=== PATIENT | male | born 1965 | race Caucasian/White ===

== ENCOUNTER 2019-10-12 08:33 | Inpatient (IN) ==
--- OUTSIDE RECORDS SUMMARY | 2019-10-12 08:37 | External Medical Summary | Continuity of Care Document ---
:1965 Author Name Sarah Hernandez, Provider Address Unavailable Unavailable , Care Team Providers Name Role Phone Karli Guerrero Unavailable 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 Start: 23-Aug-2014 Refills: 0 Omeprazole 40 MG Oral Capsule Delayed Re lease; TAKE 1 CAPSULE Daily 1/2 hour prior to breakfast KENNEDY Crespo Start: 13-Feb-2016 Quantity: 30 Refills: 4 Atorvastatin Calcium 10 MG Oral Tablet; TAKE 1 TABLET DAILY. ALBERTO Brown Start: 27-Jan-2015 Quantity: 30 Refills: 11 One Touch Delica Lancets MISC; Test 4 times daily Refills: 0 OneTouch Ultra Blue In Vitro Strip; TEST 4 TIMES DAILY. for insulin dependent Type 2 Diabetes Mellitus (E11.49) Refills: 3 Lantus SoloStar 100 UNIT/ML Subcutaneous Solution Pen-injector; INJECT 30 UNITS SUBCUTANEOUSLY AT BEDTIME ALBERTO Cardenas Start: 02-Aug-2015 Quantity: 1 3 ML Pen (5 Pens) Refills: 0 Glimepiride 4 MG Oral Tablet; Pt states taking 1 4mg tablet daily) Refills: 0 Levothyroxine Sodium 50 MCG Oral Tablet; TAKE 1 TABLET DAILY DIRECTED. ALBERTO Brown Start: 27-Jan-2015 Quantity: 30 Refills: 5 Procedures History of Hernia Repair Status: Complet ed Immunizations Immunizations not documented Family History Mother Family history of hypothyroidism (V18.19) (Z83.49) Status: A ctive Family history of osteoporosis (V17.81) (Z82.62) Status: Act pauline Father Family history of restless leg syndrome (V17.2) (Z82.0) Stat us: Active Family history of diabetes mellitus (V18.0) (Z83.3) Status: Active Family history of coronary artery disease (V17.3) (Z82.49) S tatus: Active Family history of congestive heart failure (V17.49) (Z82.49) Status: Active Social History - Smoking Status Smokes tobacco daily Plan of Treatment Planned Observations Planned Goals not documented Results No Known Results Results not documented
[2019-10-12 09:07] LABS: Basophils # (auto) 0.01 K/uL (0-0.2); Basophils % (auto) 0.2 %; Eosinophils # (auto) 0.08 K/uL (0-0.5); Eosinophils % (auto) 1.8 %; Hematocrit (blood only) 41.1 % (42-52); Hemoglobin 14.7 g/dL (14.0-18.0); Immature Granulocytes # (auto) 0.05 K/uL (0.00-0.02); Immature Granulocytes % (auto) 1.1 %; Lymphocytes % (auto) 24.1 %; Mean Corpuscular Hgb Conc 35.8 g/dL (32-36); Mean Corpuscular Volume 86.7 fL (80-100); Mean Platelet Volume 9.7 fL (7.4-10.4); Monocytes # (auto) 0.32 K/uL (0.11-0.59); Neutrophils # (auto) 3.01 K/uL (1.4-6.5); Neutrophils % (auto) 65.8 %; Platelet Count 130 K/uL (130-400); RDW Coefficient of Variation 14.4 % (11.5-14.5); RDW Standard Deviation 45.6 fL (36.4-46.3); Red Blood Count 4.74 M/uL (4.7-6.1); White Blood Count 4.57 K/uL (4.8-10.8)
[2019-10-12 09:14] LABS: INR 1.1 (0.9-1.1); Partial Thromboplastin Ratio 0.9; Partial Thromboplastin Time 24.8 Seconds (21.0-31.0); Prothrombin Time 11.3 Seconds (9.0-12.0)
[2019-10-12] MEDS ORDERED: NITROGLYCERIN 2% OINTMENT 30GM TUBE EXT STA (09:26)
--- NOTE | 2019-10-12 09:26 | Emergency Department Note ---
History of Present Illness General Chief Complaint: Chest Pain Time Seen by Provider: 10/12/19 08:48 Source: patient Mode of arrival: EMS Limitations: no limitations History of Present Illness Provider Complaint: chest pain Maximum Pain Intensity: 2 The patient presents to the ED with a chief complaint of chest pain off and on for about a week. He states that it seemed to be more exertional in nature. This morning he awoke with chest pain and diaphoresis as well as nausea and vomiting as well as burping/and indigestion. He states that it started around 530 this morning. EMS gave him aspirin and 2 sublingual nitroglycerin that seemed to help. The patient now states that his pain is mild. Denies any fevers or recent illness. He is an insulin-dependent diabetic. He also has a h istory of hypertension. Symptoms are moderate to severe this morning. For this reason he called the ambulance. Home Medications Home Medications Medication Instructions Recorded Confirmed Type atenolol 25 mg PO DAILY 10/12/19 10/12/19 History atorvastatin 10 mg PO DAILY 10/12/19 10/12/19 History gabapentin 300 mg PO HS 10/12/19 10/12/19 History insulin glargine [Lantus Solostar 30 unit SUBCUT QPM 10/12/19 10/12/19 History U-100 Insulin] lisinopril 20 mg PO DAILY 10/12/19 10/12/19 History nystatin 1 applic TOPICAL BID 10/12/19 10/12/19 History omeprazole 40 mg PO DAILY 10/12/19 10/12/19 History Allergies Allergy/AdvReac Type Severity Reaction Status Date / Time No Known Allergies Unverified 04/28/10 09:35 Past Med/Surg History Social History Smoking Status: Current every day smoker Tobacco Type: Cigarettes Feels Safe at Home: Yes Review of Systems A total of 10 systems reviewed and were otherwise negative Physical Exam Vital Signs Vital Signs - 24 hr 10/12/19 08:49 10/12/19 08:54 10/12/19 08:55 Temperature 36.5 C Temperature Source Oral Pulse Rate 78 Pulse Rate [Apical] Pulse Rhythm Regular Pulse Rhythm [Apical] Pulse Strength Normal Pulse Strength [Apical] Respiratory Rate 18 Respiratory Effort / Characteristics Non-Labored Spontaneous Respiratory Depth Normal Respiratory Pattern Regular Blood Pressure 127/80 Blood Pressure [Left Arm] Blood Pressure Mean 95 Blood Pressure Mean [Left Arm] Blood Pressure Position Lying Blood Pressure Position [Left Arm] Pulse Oximetry 98 98 97 Oxygen Delivery Method Room Air Room Air Room Air Sepsis Recent Fever Within 48 Hours No Sepsis New/Unexplained Change in Mental Status No Sepsis Action Taken by Nursing No Action Required 10/12/19 09:33 10/12/19 10:52 Temperature Temperature Source Pulse Rate Pulse Rate [Apical] 61 67 Pulse Rhythm Pulse Rhythm [Apical] Regular Regular Pulse Strength Pulse Strength [Apical] Normal Normal Respiratory Rate 18 16 Respiratory Effort / Characteristics Non-Labored Spontaneous Non-Labored Spontaneous Respiratory Depth Normal Normal Respiratory Pattern Regular Regular Blood Pressure Blood Pressure [Left Arm] 130/88 123/79 Blood Pressure Mean Blood Pressure Mean [Left Arm] 102 93 Blood Pressure Position Blood Pressure Position [Left Arm] Lying Lying Pulse Oximetry 97 99 Oxygen Delivery Method Room Air Room Air Sepsis Recent Fever Within 48 Hours Sepsis New/Unexplained Change in Mental Status Sepsis Action Taken by Nursing CONSTITUTIONAL/VITAL SIGNS: Reviewed / noted above. GENERAL: Non-toxic in appearance. INTEGUMENTARY: Warm, dry, and [place]. HEAD: Normocephalic. EYES: without scleral icterus or trauma. ENT/OROPHARYNX: clear and moist. LYMPHADENOPATHY/NECK: Is supple without lymphadenopathy or meningismus. RESPIRATORY: Lungs clear and equal. CARDIOVASCULAR: Regular rate and rhythm. GI/ABDOMEN: Soft and nontender. No organomegaly or pulsatile mass. No rebound or guarding. Normal bowel sounds. EXTREMITIES: Warm and well perfused. BACK: No CVA tenderness. NEUROLOGICAL: Intact without focal deficits. PSYCHIATRIC: normal affect. MUSCULOSKELETAL: Normally developed with good muscle tone. TRIAGE NURSING DOCUMENTATION REVIEWED. Course Administered Medications Discontinued Medications Nitroglycerin (Nitro-Bid 2%) 1 inch EXT NOW STA Stop: 10/12/19 09:27 Last Admin: 10/12/19 09:40 Dose: 1 inch Documented by: [id number] Medical Decision Making Differential Diagnosis The differential that was considered includes acute myocardial infarction, acute coronary syndrome, myocarditis, pericarditis, pericardial effusions /tamponade, esophageal perforation, thoracic aortic dissection, pulmonary embolism, pneumonia, pneumothorax, pancreatitis, shingles, acute cholecystitis, perforated abdominal viscus. Medical Records Attestation: I reviewed the patient's medical records. Home Medications Current Medication List: was personally reviewed by me Laboratory Data Attestation: I reviewed the patient's lab results. Result diagrams: 10/12/19 08:49 10/12/19 08:49 Labs: Lab Results 10/12/19 10/12/19 10/12/19 Range/Units 08:49 08:49 08:49 WBC 4.57 L (4.8-10.8) K/uL RBC 4.74 (4.7-6.1) M/uL Hgb 14.7 (14.0-18.0) g/dL Hct 41.1 L (42-52) % MCV 86.7 (80-100) fL MCH 31.0 (25-34) pg MCHC 35.8 (32-36) g/dL RDW Std Deviation 45.6 (36.4-46.3) fL RDW Coeff of Isi 14.4 (11.5-14.5) % Plt Count 130 (130-400) K/uL MPV 9.7 (7.4-10.4) fL Immature Gran % (Auto) 1.1 % Neut % (Auto) 65.8 % Lymph % (Auto) 24.1 % Phillips % (Auto) 7.0 % Eos % (Auto) 1.8 % Baso % (Auto) 0.2 % Neut # (Auto) 3.01 (1.4-6.5) K/uL Lymph # (Auto) 1.10 L (1.2-3.4) K/uL Phillips # (Auto) 0.32 (0.11-0.59) K/uL Eos # (Auto) 0.08 (0-0.5) K/uL Baso # (Auto) 0.01 (0-0.2) K/uL Immature Gran # (Auto) 0.05 H (0.00-0.02) K/uL PT 11.3 (9.0-12.0) Seconds INR 1.1 (0.9-1.1) APTT 24.8 (21.0-31.0) Seconds PTT Ratio 0.9 Sodium 134 L (136-145) mmol/L Potassium 4.2 (3.5-5.1) mmol/L Chloride 99 (98-107) mmol/L Carbon Dioxide 25 (21-32) mmol/L Anion Gap 10.0 (3-11) BUN 14 (7-18) mg/dl Creatinine 0.94 (0.6-1.4) mg/dl Est Cr Clr Drug Dosing 124.6 ml/min Est GFR ( Amer) 107.6 Est GFR (Non-Af Amer) 92.8 BUN/Creatinine Ratio 15.1 (10-20) Glucose 258 H (70-99) mg/dl Calcium 7.7 L (8.5-10.1) mg/dl Total Bilirubin 0.6 (0.2-1) mg/dl AST 71 H (15-37) U/L ALT 121 H (12-78) U/L Alkaline Phosphatase 85 (45-117) U/L Total Creatine Kinase 109 (39-308) U/L Troponin I 0.017 (0-0.045) ng/ml Total Protein 6.7 (6.4-8.2) gm/dl Albumin 3.2 L (3.4-5.0) gm/dl Globulin 3.5 (2.5-4.0) gm/dl Albumin/Globulin Ratio 0.9 (0.9-2) Lipase 353 (73-393) U/L ECG Data Attestation: I personally reviewed and interpreted this ECG as follows: Indication: chest pain Rate (beats per minute): 72 Rhythm: normal sinus Findings: + T-wave inversion (Lateral) Comparison ECG Date: no prior available MDM Narrative The patient presents with intermittent chest pain that has been exertional in nature. This morning it was severe and associated with nausea vomiting and diaphoresis. This morning symptoms started at 5:30 AM. He states that it was worse with exertion. EMS provided aspirin and sublingual nitro x2 and this helped his pain. His initial twelve-lead EKG shows a normal sinus rhythm at a rate of 72 with T wave inversions laterally. His CBC was unremarkable. Chemistry panel and troponin were unremarkable as well. The chest x-ray was negative for acute disease. Glucose is 255. The lipase was negative. The patient was told the results. He was given Nitropaste. On reassessment, he states that he is feeling much better. He will be seen by the hospitalist for further inpatient evaluation and care. His symptoms are concerning for unstable angina. Impression & Plan Angina pectoris, unstable Discharge Plan Visit Data Chief Complaint: Chest Pain ED Provider: Marshall Santoro Discharge Problem: Angina pectoris, unstable Patient Disposition: Being Evaluated by Hospitalist Forms Stand Alone Forms: My [facility] Prescriptions Prescriptions: No Action atorvastatin 10 mg tablet 10 mg PO DAILY RF: 0 lisinopril 20 mg tablet 20 mg PO DAILY RF: 0 atenolol 25 mg tablet 25 mg PO DAILY RF: 0 omeprazole 40 mg capsule,delayed release(DR/EC) 40 mg PO DAILY RF: 0 nystatin 100,000 unit/gram cream 1 applic TOPICAL BID RF: 0 gabapentin 300 mg capsule 300 mg PO HS RF: 0 Lantus Solostar U-100 Insulin 100 unit/mL (3 mL) insulin pen 30 unit SUBCUT QPM RF: 0 Referrals Referrals: PCP,NO [Primary Care Provider] -
[2019-10-12 09:30] LABS: Albumin Globulin Ratio 0.9 (0.9-2); Albumin Level 3.2 gm/dl (3.4-5.0); BUN Creatinine Ratio 15.1 (10-20); Bilirubin,Total 0.6 mg/dl (0.2-1); Calcium 7.7 mg/dl (8.5-10.1); Creatinine Clr Calc Pharmacy 124.6 ml/min; Est GFR (African American) 107.6; Est GFR (Non-African American) 92.8; Globulin 3.5 gm/dl (2.5-4.0); Total Protein 6.7 gm/dl (6.4-8.2); Troponin I 0.017 ng/ml (0-0.045)
[2019-10-12 09:45] LABS: Potassium 4.2 mmol/L (3.5-5.1)
--- NOTE | 2019-10-12 09:47 | XRay Report ---
XR chest 1V portable HISTORY: 54 years-old Male Chest Pain acute atypical chest pain COMPARISON: Chest radiograph 04/28/2010 TECHNIQUE: Portable AP view of the chest FINDINGS: Cardiomediastinal and hilar silhouettes are unchanged. Mild right hemidiaphragmatic elevation. There is no pneumothorax, pleural effusion, airspace consolidation or overt pulmonary edema. IMPRESSION: No acute process. ACT 112: Negative or not required by law. The above report was generated using voice recognition software. It may contain grammatical, syntax o r spelling errors. Electronically signed by: Filemon Abdi M.D. 10/12/2019 9:45 AM
[2019-10-12] MEDS ORDERED: GLUCAGON FOR INJ 1 MG VIAL SQ PRN (11:06)
[2019-10-12] MEDS ORDERED: GLUCOSE 40% GEL 15 GM TUBE PO PRN (11:06)
[2019-10-12] MEDS ORDERED: CARBOHYDRATES FOR HYPOGLYCEMIA PO PRN (11:06)
[2019-10-12] MEDS ORDERED: DEXTROSE 50% 50 ML SYRINGE IV PRN (11:06)
[2019-10-12] MEDS ORDERED: GLUCOSE 10 TABS/TUBE PO PRN (11:06)
--- NOTE | 2019-10-12 11:19 | History & Physical Report ---
Date of Service October 12, 2019 Assessment & Plan (1) Atypical chest pain: History more consistent with GI cause given relationship with food and chronic nature with known gastritis. However patient has multiple significant risk factors for coronary disease with exertional component to his pain. Given severity current event event is doubtfully cardiac unless he has a troponin elevation. EKG with TWI in lateral leads. Currently chest pain free with 1 inch nitro patch ASA 324mg PO given en route to hospital Trend troponins HbA1C and lipid panel in AM IV famotidine 20mg given for possible GERD, likely esophageal spasm/motility issue causing his pain given improvement with nitroglycerin Given concern he had similar symptoms with prior bowel obstruction will also give full liquid diet which can be advanced if he doesn't have recurrent nausea/vomiting. (2) Type 2 diabetes mellitus: HbA1C with AM labs Basal bolus insulin coverage Reports no longer taking (3) GERD (gastroesophageal reflux disease): IV famotidine 20mg now. Switch omeprazole for pantoprazole as per hospital formulary. (4) Hypertriglyceridemia: Lipid panel with AM labs Continue atorvastatin (5) Hypertension: Continue lisinopril and atenolol (6) Bilateral carpal tunnel syndrome: Recommend outpatient follow up with his PCP Admission and Anticipated Discharge Date Admission Date: 10/12/2019 History of Present Illness Chief Complaint: Chest pain Primary Care Provider: Dr Brendan Ly Jenaro is a 54 year old male who presents to the ER with severe chest pain that started at 5:30am today. The pain woke him up and gradually increased throughout the morning. Most severe 10/10 after drinking ice tea. Worse on exertion. Ice tea started his vomiting and diaphoresis and just wouldn't go away after this so he called for EMS. Aspirin and nitro spray given by EMS on route. No radiation. Substernal. Since being given the nitro patch in the ER he has been chest pain free. No prior history of CAD or CVA. He has a long standing history of similar pains over the last year. These appear to have been getting worse the last few weeks but to much less severity than today. Occurring at rest. On one occasion after eating a burger Rolando whopper. Another time he woke up in the middle of the night with his heart going fasting and pounding (he put this down to newly taking gabapentin). He reports being stung by a bee yesterday and wondered whether this precipitated his pain today. He has a longstanding history of GERD requiring prior EGDs although he cannot reliably remember the results of these but they were more than a decade ago. He has diabetes and reports not having his insulin for the last 3 months, he did take his usual 30 units last night. He also has LEANNE but reports having difficulty getting the correct supplies so also hasn't been using this. Current smoker - 1.5 packs/day. Allergies Allergy/AdvReac Type Severity Reaction Status Date / Time No Known Allergies Unverified 04/28/10 09:35 Home Medications Home Medications Medication Instructions Recorded Confirmed Type atenolol 25 mg PO DAILY 10/12/19 10/12/19 History atorvastatin 10 mg PO DAILY 10/12/19 10/12/19 History gabapentin 300 mg PO HS 10/12/19 10/12/19 History insulin glargine [Lantus Solostar 30 unit SUBCUT QPM 10/12/19 10/12/19 History U-100 Insulin] lisinopril 20 mg PO DAILY 10/12/19 10/12/19 History nystatin 1 applic TOPICAL BID 10/12/19 10/12/19 History omeprazole 40 mg PO DAILY 10/12/19 10/12/19 History Past Med/Surg History Medical History (Updated 10/13/19 @ 08:19 by Ricardo Will MD) Bilateral carpal tunnel syndrome GERD (gastroesophageal reflux disease) Hypertension Hypertriglyceridemia Type 2 diabetes mellitus Social History Smoking Status: Current every day smoker Tobacco Type: Cigarettes Cigarettes Per Day: 1.5 pack per day; Do You Dip or Chew Tobacco: No; Hx Alcohol Use: Yes Alcohol type: beer Hx Substance Use: Yes Last Used Substance: Days (ago) Last Used Substance Other:: smoked marijuana yesterday Preferred Language: Citizen Of [place] Communication Ability: Effective Electrotyper Apprentice Required: No Beliefs That Will Affect Care: None Current Living Situation: Family Other Information That Helps Us Care for You: No Feels Safe at Home: Yes Safety Concerns: Feels Safe At This Time Review of Systems Review of Systems: All systems reviewed & are unremarkable except as noted in HPI & below Physical Exam Constitutional: well developed and well nourished; no acute distress Eyes: + anicteric sclerae; normal pupil size ENMT: external ear and nose normal, oropharynx normal Neck: trachea midline, no thyromegaly Respiratory: normal respiratory effort, lungs clear to auscultation Cardiovascular: RRR, no murmur, no edema Gastrointestinal (Abdomen): normal bowel sounds, soft, nontender, no hepatosplenomegaly Musculoskeletal: no cyanosis or clubbing, extremities motor strength 5/5 Skin: no rashes, warm and dry Neurologic: moves all extremities and awake; not confused Psychiatric: A+Ox3, euthymic affect Genitourinary: no CVA tenderness Lymphatic: no cervical or axillary lymphadenopathy Results & Data Results & Data ([facility]) Vital Signs (Past 12 Hours) Vital Signs Temp Pulse Pulse Resp BP BP Pulse Ox 10/12/19 10:52 67 16 123/79 99 10/12/19 09:33 61 18 130/88 97 10/12/19 08:55 97 10/12/19 08:54 98 10/12/19 08:49 36.5 C 78 18 127/80 98 Diagnostic Findings XR chest 1V portable IMPRESSION: No acute process. ECG Indication: chest pain Rate (beats per minute): 72 Rhythm: normal sinus Findings: + T-wave inversion (Lateral) Comparison ECG Date: from (2010) Change: the following changes noted (TWI replaced flattening in lateral leads) Code Status & VTE Plan Code Status Full VTE Prophylaxis Plan VTE Prophylaxis will be ordered: No PG Care Time/CCT Total # of Minutes Spent Total Time Spent with Patient: Total time spent is greater than 50% in coordination of care (as documented) at patient's floor/unit and/or counseling patient: Coding Level of Care Code 06874 Initial Inpt Care Lvl 3 Diagnoses Atypical chest pain R07.89 Type 2 diabetes mellitus E11.9 GERD (gastroesophageal reflux disease) K21.9 Hypertriglyceridemia E78.1 Hypertension I10 Bilateral carpal tunnel syndrome G56.03
[2019-10-12] MEDS ORDERED: FAMOTIDINE 20MG/5ML IV PUSH IV STA (11:26)
--- NOTE | 2019-10-12 11:40 | Electrocardiogram Report ---
Test Reason : Blood Pressure : / mmHG Vent. Rate : 072 BPM Atrial Rate : 072 BPM P-R Int : 138 ms QRS Dur : 096 ms QT Int : 384 ms P-R-T Axes : 064 -07 097 degrees QTc Int : 420 ms Normal sinus rhythm T wave abnormality, consider lateral ischemia Abnormal ECG When compared with ECG of 28-APR-2010 09:29, Inverted T waves have replaced nonspecific T wave abnormality in Lateral leads Confirmed by Isra Valencia ([id number]) on 10/12/2019 11:39:57 AM Referred By: REFERRED SELF Confirmed By:Kingsley Valencia
[2019-10-12] MEDS: INSULIN ASPART 100 UNITS/ML 3 ML PEN SC SCH ×3 (13:39→20:24)
[2019-10-12] MEDS: NITROGLYCERIN 2% OINTMENT 30GM TUBE EXT SCH ×2 (13:43→17:34)
[2019-10-12 16:13] LABS: Albumin Level 3.2 gm/dl (3.4-5.0); BUN Creatinine Ratio 15.3 (10-20); Bilirubin,Total 0.5 mg/dl (0.2-1); Creatinine Clr Calc Pharmacy 139.3 ml/min; Est GFR (African American) 116.7; Est GFR (Non-African American) 100.7; Globulin 3.3 gm/dl (2.5-4.0); Potassium 4.1 mmol/L (3.5-5.1); Total Protein 6.5 gm/dl (6.4-8.2); Troponin I 0.332 ng/ml (0-0.045)
[2019-10-12] MEDS ORDERED: ONDANSETRON INJ 2 MG/ML 2 ML VIAL IV PRN (16:18)
[2019-10-12] MEDS ORDERED: NITROGLYCERIN SL 0.4 MG/TAB TAB SL PRN (16:18)
[2019-10-12] MEDS ORDERED: Heparin IV Low Dose WITH Bolus IV SCH (16:30)
[2019-10-12] MEDS ORDERED: HEPARIN IV BOLUS 4,000 UNITS in SYRINGE 0 ML IV ONE (17:00)
[2019-10-12] MEDS: INSULIN GLARGINE SOLOSTAR 100 UNITS/ML 3 ML PEN SC SCH (17:19)
[2019-10-12] MEDS: HEPARIN SODIUM/DEXTROSE 25,000 UNITS/500 ML BAG IV SCH (17:28)
[2019-10-12 17:44] LABS: INR 1.1 (0.9-1.1); Partial Thromboplastin Ratio 0.8; Partial Thromboplastin Time 23.6 Seconds (21.0-31.0); Prothrombin Time 11.2 Seconds (9.0-12.0)
[2019-10-12] MEDS: ATORVASTATIN 40 MG TAB PO SCH (20:22)
[2019-10-12] MEDS: METOPROLOL TARTRATE 25 MG TAB PO SCH (20:23)
[2019-10-12 23:48] LABS: Partial Thromboplastin Ratio 1.1; Partial Thromboplastin Time 30.1 Seconds (21.0-31.0)
[2019-10-13] MEDS ORDERED: INSULIN ASPART 100 UNITS/ML 3 ML PEN SC ONE
[2019-10-13] MEDS: NITROGLYCERIN 2% OINTMENT 30GM TUBE EXT SCH ×3 (00:16→13:30)
[2019-10-13] MEDS: MoRPHine SULFATE 2 MG/ML CARP IV STA ×2 (01:59→02:06)
[2019-10-13] MEDS ORDERED: Nursing to Pharmacy Communication SCH (03:00)
[2019-10-13] MEDS ORDERED: HEPARIN IV BOLUS 4,500 UNITS in SYRINGE 0 ML IV ONE (03:30)
[2019-10-13 05:50] LABS: Basophils # (auto) 0.01 K/uL (0-0.2); Basophils % (auto) 0.2 %; Eosinophils # (auto) 0.07 K/uL (0-0.5); Eosinophils % (auto) 1.5 %; Hematocrit (blood only) 39.2 % (42-52); Hemoglobin 13.9 g/dL (14.0-18.0); Immature Granulocytes # (auto) 0.03 K/uL (0.00-0.02); Immature Granulocytes % (auto) 0.6 %; Lymphocytes # (auto) 1.73 K/uL (1.2-3.4); Mean Corpuscular Hemoglobin 31.2 pg (25-34); Mean Corpuscular Hgb Conc 35.5 g/dL (32-36); Mean Corpuscular Volume 87.9 fL (80-100); Mean Platelet Volume 9.9 fL (7.4-10.4); Monocytes # (auto) 0.24 K/uL (0.11-0.59); Monocytes % (auto) 5.1 %; Neutrophils # (auto) 2.59 K/uL (1.4-6.5); Neutrophils % (auto) 55.6 %; Platelet Count 108 K/uL (130-400); RDW Coefficient of Variation 14.6 % (11.5-14.5); RDW Standard Deviation 46.9 fL (36.4-46.3); Red Blood Count 4.46 M/uL (4.7-6.1); White Blood Count 4.67 K/uL (4.8-10.8)
[2019-10-13 06:40] LABS: Albumin Globulin Ratio 0.9 (0.9-2); BUN Creatinine Ratio 14.9 (10-20); Bilirubin,Total 0.5 mg/dl (0.2-1); Creatinine Clr Calc Pharmacy 144.2 ml/min; Est GFR (African American) 118.4; Est GFR (Non-African American) 102.2; Globulin 3.4 gm/dl (2.5-4.0); Potassium 3.6 mmol/L (3.5-5.1); Total Protein 6.4 gm/dl (6.4-8.2); Troponin I 0.251 ng/ml (0-0.045)
[2019-10-13] MEDS: lisinopriL 20 MG TAB PO SCH (07:39)
[2019-10-13] MEDS: METOPROLOL TARTRATE 25 MG TAB PO SCH ×2 (07:40→20:03)
[2019-10-13] MEDS: INSULIN ASPART 100 UNITS/ML 3 ML PEN SC SCH ×4 (07:42→20:23)
[2019-10-13 07:52] LABS: Estimated Average Glucose 275 mg/dl; Hemoglobin A1C 11.2 % (4.5-5.6)
[2019-10-13] MEDS ORDERED: ATORVASTATIN 10 MG TAB PO SCH (09:00)
[2019-10-13] MEDS ORDERED: ATENOLOL 25 MG TABLET PO SCH (09:00)
[2019-10-13] MEDS ORDERED: ASPIRIN 81 MG ECTAB PO SCH (09:00)
--- NOTE | 2019-10-13 09:04 | XCELERA ---
[id number]
--- NOTE | 2019-10-13 09:39 | Pre Anesthesia Assessment ---
Date of Service October 13, 2019 Pre Sedation Assessment Vital Signs Temp Pulse Pulse Resp BP BP Pulse Ox 10/13/19 07:13 36.6 C 64 18 133/84 94 10/13/19 04:02 36.6 C 68 20 137/86 98 10/13/19 03:20 61 10 L 95 10/13/19 01:49 61 10/12/19 23:20 64 18 96 10/12/19 23:10 36.8 C 61 18 113/72 96 10/12/19 20:02 36.6 C 74 18 126/72 96 10/12/19 15:32 36.8 C 94 H 18 128/72 94 10/12/19 15:13 36.7 C 95 H 18 117/71 96 10/12/19 14:53 69 10/12/19 13:24 70 10/12/19 13:05 37 C 90 18 139/71 100 10/12/19 12:10 68 18 120/84 97 10/12/19 10:52 67 16 123/79 99 Cardiovascular + regular rate Respiratory + respiratory effort normal Pre-Sedation Airway Assessment Smoking Status: Current every day smoker Hx Sleep Apnea: Yes Hx Difficult Intubation: No Short, Thick Neck: No Thyromental Distance: > or= 3.5 Finger Breadths Oral Cavity: + WNL Mallampati Class: III ASA: ASA3 Procedure Planning Contraindications for Sedation: none Current Medications Reviewed: Yes Notes The planned sedation has been discussed with the patient. Informed Consent was obtained. I have identified the patient, determined the appropriateness of sedation and have assessed the patient immediately prior to the procedure. All medicine(s) and interventions are by my order.
[2019-10-13] MEDS: INSULIN GLARGINE SOLOSTAR 100 UNITS/ML 3 ML PEN SC SCH ×2 (09:41→20:23)
[2019-10-13 10:01] LABS: Partial Thromboplastin Ratio 1.3; Partial Thromboplastin Time 35.6 Seconds (21.0-31.0)
--- NOTE | 2019-10-13 10:07 | Cardiology Consultation ---
Date of Consultation October 13, 2019 Assessment & Plan (1) Chest pain: patient's symptoms of chest discomfort have typical and atypical features. He had a very prolonged episode of what he described as severe discomfort with only mild elevation in his cardiac biomarkers. However, he has begun having similar episodes over the past month, some which seem to be worsened by exertion. Objective finding suggestive of ischemia would be his cardiac biomarker elevation and abnormal EKG. Echocardiogram was reassuring that he has preserved LV systolic function without evidence of old infarct. My main concern is his risk factors for coronary disease. Appears have poorly controlled diabetes and an abnormal lipid profile. He is not appear to have a family history of premature coronary disease. We discussed options for additional evaluation. I think based on his risk factors and some typical features of his symptoms would be reasonable to perform coronary angiography. Discussed the risks benefits and alternatives and he is willing to proceed. He will clearly need more aggressive risk factor modification to include better glycemic control, additional anti-lipid agents and a return to use of CPAP more regularly History of Present Illness Reason for Consultation: Chest pain Requesting Physician: Nicolette Attending Physician: John Julien DO History of Present Illness patient is a 54-year-old gentleman without a known history of cardiac disease has been experiencing symptoms of chest discomfort over the past month. Yesterday morning the patient awoke in shortly after getting out of bed he began to experience severe substernal discomfort. Describes some radiation to the back a sense of numbness in both arms. His symptoms were associated with some diaphoresis and later nausea and retching. His symptoms were persistent for over an hour. Due to the persistent and severe nature of his symptoms he contacted EMS and was transported not any [facility]. Patient's symptoms appear to have resolved significantly in the emergency room, but apparently he did have some additional mild symptoms later in the day. He reports 3 other episodes that were similar. One of these occurred after eating and being active. He the to appear to occur spontaneously. These episodes were less severe and lasted under an hour. All these episodes have occurred over the past month. Additional symptoms recently include a sense of generalized weakness and exercise intolerance. He does claim to be an active individual who is accustomed mowing grass and performing significant labor. He has not had symptoms chest pressure or limiting dyspnea associated with these activities recently. He has a rare sense of palpitation. He has dizziness when bending over and standing up rapidly. He has never suffered syncope. He does not have orthopnea or paroxysmal nocturnal dyspnea. He does have a history of obstructive sleep apnea and has not been compliant with his CPAP. Allergies Allergy/AdvReac Type Severity Reaction Status Date / Time No Known Allergies Unverified 04/28/10 09:35 Home Medications Home Medications Medication Instructions Recorded Confirmed Type atenolol 25 mg PO DAILY 10/12/19 10/12/19 History atorvastatin 10 mg PO DAILY 10/12/19 10/12/19 History gabapentin 300 mg PO HS 10/12/19 10/12/19 History insulin glargine [Lantus Solostar 30 unit SUBCUT QPM 10/12/19 10/12/19 History U-100 Insulin] lisinopril 20 mg PO DAILY 10/12/19 10/12/19 History nystatin 1 applic TOPICAL BID 10/12/19 10/12/19 History omeprazole 40 mg PO DAILY 10/12/19 10/12/19 History Patient History Medical History Bilateral carpal tunnel syndrome GERD (gastroesophageal reflux disease) Hypertension Hypertriglyceridemia Type 2 diabetes mellitus Social History Smoking Status: Current every day smoker Tobacco Type: Cigarettes Cigarettes Per Day: 1.5 pack per day; Do You Dip or Chew Tobacco: No; Hx Alcohol Use: Yes Alcohol type: beer Hx Substance Use: No Preferred Language: Yoruba Communication Ability: Effective Route Returner Required: No Beliefs That Will Affect Care: None Current Living Situation: Family Other Information That Helps Us Care for You: No Feels Safe at Home: Yes Safety Concerns: Feels Safe At This Time Review of Systems Review of Systems: All systems reviewed & are unremarkable except as noted in HPI & below Physical Exam Physical Exam: The patient is alert and oriented. Mood and affect appeared normal. He answered all questions appropriately. HEENT: Pupils are equal and reactive to light and accommodation. Extraocular movements are intact. The sclerae are anicteric. Neuro: Cranial nerves intact Neck: Patient's neck is supple. He has palpable carotid pulses bilaterally without bruits on auscultation. There is no evidence of jugular venous distention. The thyroid is not enlarged. Lungs: Clear to auscultation bilaterally. He has good air movement without use of accessory muscles. No rales wheezes or rhonchi. Cardiac: Heart demonstrates a regular rate and rhythm. Normal S1 and S2. No murmurs on examination. Pulses: The patient has palpable radial pulses bilaterally that are equal in intensity Extremities: There was no evidence of hypoperfusion. There is no cyanosis or clubbing. There is no edema. Skin: I did not appreciate any rashes on examination today. Results & Data ([facility]) Vital Signs (Past 12 Hours) Vital Signs Temp Pulse Pulse Resp BP Pulse Ox 10/13/19 07:13 36.6 C 64 18 133/84 94 10/13/19 04:02 36.6 C 68 20 137/86 98 10/13/19 03:20 61 10 L 95 10/13/19 01:49 61 10/12/19 23:20 64 18 96 10/12/19 23:10 36.8 C 61 18 113/72 96 Laboratory Results Abnormal Lab Results 10/12/19 10/12/19 10/12/19 13:03 14:56 17:10 WBC RBC Hgb Hct MCV MCH MCHC RDW Std Deviation RDW Coeff of Isi Plt Count MPV Immature Gran % (Auto) Neut % (Auto) Lymph % (Auto) Lucas % (Auto) Eos % (Auto) Baso % (Auto) Neut # (Auto) Lymph # (Auto) Lucas # (Auto) Eos # (Auto) Baso # (Auto) Immature Gran # (Auto) PT INR APTT PTT Ratio Sodium 133 L Potassium 4.1 Chloride 102 Carbon Dioxide 26 Anion Gap 5.0 BUN 13 Creatinine 0.84 Est Cr Clr Drug Dosing 139.3 Est GFR ( Amer) 116.7 Est GFR (Non-Af Amer) 100.7 BUN/Creatinine Ratio 15.3 Glucose 214 H POC Glucose 279 H 186 H Estimat Average Glucose Hemoglobin A1c Calcium 8.0 L Total Bilirubin 0.5 AST 53 H ALT 107 H Alkaline Phosphatase 82 Troponin I 0.332 H* Total Protein 6.5 Albumin 3.2 L Globulin 3.3 Albumin/Globulin Ratio 1.0 Triglycerides Cholesterol LDL Cholesterol, Calc VLDL Cholesterol, Calc HDL Cholesterol Cholesterol/HDL Ratio Specimen Hemolysis 10/12/19 10/12/19 10/12/19 17:26 20:17 23:29 WBC RBC Hgb Hct MCV MCH MCHC RDW Std Deviation RDW Coeff of Isi Plt Count MPV Immature Gran % (Auto) Neut % (Auto) Lymph % (Auto) Lucas % (Auto) Eos % (Auto) Baso % (Auto) Neut # (Auto) Lymph # (Auto) Lucas # (Auto) Eos # (Auto) Baso # (Auto) Immature Gran # (Auto) PT 11.2 INR 1.1 APTT 23.6 30.1 PTT Ratio 0.8 1.1 Sodium Potassium Chloride Carbon Dioxide Anion Gap BUN Creatinine Est Cr Clr Drug Dosing Est GFR ( Amer) Est GFR (Non-Af Amer) BUN/Creatinine Ratio Glucose POC Glucose 235 H Estimat Average Glucose Hemoglobin A1c Calcium Total Bilirubin AST ALT Alkaline Phosphatase Troponin I Total Protein Albumin Globulin Albumin/Globulin Ratio Triglycerides Cholesterol LDL Cholesterol, Calc VLDL Cholesterol, Calc HDL Cholesterol Cholesterol/HDL Ratio Specimen Hemolysis 10/12/19 10/13/19 10/13/19 23:29 00:00 05:28 WBC 4.67 L RBC 4.46 L Hgb 13.9 L Hct 39.2 L MCV 87.9 MCH 31.2 MCHC 35.5 RDW Std Deviation 46.9 H RDW Coeff of Isi 14.6 H Plt Count 108 L MPV 9.9 Immature Gran % (Auto) 0.6 Neut % (Auto) 55.6 Lymph % (Auto) 37.0 Lucas % (Auto) 5.1 Eos % (Auto) 1.5 Baso % (Auto) 0.2 Neut # (Auto) 2.59 Lymph # (Auto) 1.73 Lucas # (Auto) 0.24 Eos # (Auto) 0.07 Baso # (Auto) 0.01 Immature Gran # (Auto) 0.03 H PT INR APTT PTT Ratio Sodium Potassium Chloride Carbon Dioxide Anion Gap BUN Creatinine Est Cr Clr Drug Dosing Est GFR ( Amer) Est GFR (Non-Af Amer) BUN/Creatinine Ratio Glucose POC Glucose 164 H Estimat Average Glucose Hemoglobin A1c Calcium Total Bilirubin AST ALT Alkaline Phosphatase Troponin I 0.403 H* Total Protein Albumin Globulin Albumin/Globulin Ratio Triglycerides Cholesterol LDL Cholesterol, Calc VLDL Cholesterol, Calc HDL Cholesterol Cholesterol/HDL Ratio Specimen Hemolysis 10/13/19 10/13/19 10/13/19 05:28 05:28 07:18 WBC RBC Hgb Hct MCV MCH MCHC RDW Std Deviation RDW Coeff of Isi Plt Count MPV Immature Gran % (Auto) Neut % (Auto) Lymph % (Auto) Lucas % (Auto) Eos % (Auto) Baso % (Auto) Neut # (Auto) Lymph # (Auto) Lucas # (Auto) Eos # (Auto) Baso # (Auto) Immature Gran # (Auto) PT INR APTT PTT Ratio Sodium 137 Potassium 3.6 Chloride 105 Carbon Dioxide 26 Anion Gap 6.0 BUN 12 Creatinine 0.81 Est Cr Clr Drug Dosing 144.2 Est GFR ( Amer) 118.4 Est GFR (Non-Af Amer) 102.2 BUN/Creatinine Ratio 14.9 Glucose 194 H POC Glucose 218 H Estimat Average Glucose 275 Hemoglobin A1c 11.2 H Calcium 8.0 L Total Bilirubin 0.5 AST 59 H ALT 97 H Alkaline Phosphatase 78 Troponin I 0.251 H* Total Protein 6.4 Albumin 3.0 L Globulin 3.4 Albumin/Globulin Ratio 0.9 Triglycerides 1208 H Cholesterol 191 LDL Cholesterol, Calc VLDL Cholesterol, Calc HDL Cholesterol 14 Cholesterol/HDL Ratio 14 Specimen Hemolysis 10/13/19 09:39 WBC RBC Hgb Hct MCV MCH MCHC RDW Std Deviation RDW Coeff of Isi Plt Count MPV Immature Gran % (Auto) Neut % (Auto) Lymph % (Auto) Lucas % (Auto) Eos % (Auto) Baso % (Auto) Neut # (Auto) Lymph # (Auto) Lucas # (Auto) Eos # (Auto) Baso # (Auto) Immature Gran # (Auto) PT INR APTT 35.6 H PTT Ratio 1.3 Sodium Potassium Chloride Carbon Dioxide Anion Gap BUN Creatinine Est Cr Clr Drug Dosing Est GFR ( Amer) Est GFR (Non-Af Amer) BUN/Creatinine Ratio Glucose POC Glucose Estimat Average Glucose Hemoglobin A1c Calcium Total Bilirubin AST ALT Alkaline Phosphatase Troponin I Total Protein Albumin Globulin Albumin/Globulin Ratio Triglycerides Cholesterol LDL Cholesterol, Calc VLDL Cholesterol, Calc HDL Cholesterol Cholesterol/HDL Ratio Specimen Hemolysis Diagnostic Findings Chest x-ray obtained this admission did not reveal any acute cardiopulmonary process echocardiogram obtained this morning revealed preserved LV systolic function without regional wall motion abnormalities or any evidence of valvular heart disease. ECG Additional Comments: EKG obtained at the time admission revealed normal sinus rhythm with some T-wave inversions primarily lateral precordial leads PG Care Time/CCT Total # of Minutes Spent Total Time Spent with Patient: Total time spent is greater than 50% in coordination of care (as documented) at patient's floor/unit and/or counseling patient: Coding Level of Care Code 85360 Inpt Consult Level 4 Diagnoses Chest pain R07.9
[2019-10-13] MEDS ORDERED: BIVALIRUDIN 250 MG VIAL (CATH LAB ONLY) ONE (10:50)
[2019-10-13] MEDS ORDERED: MIDAZOLAM HCL 1 MG/ML 2ML VIAL ONE (10:59)
--- NOTE | 2019-10-13 11:13 | Cardiac Catheterization ---
[facility] Data: Director Of Clinical Trials Cardiac Status Clinical evaluation leading to the procedure CAD Presenation: Non STEMI Diagnostic Physicians Name: Isra Valencia MD Closure Device Recommendations: PCI without planned CABG Cardiac Cath Procedure Full Procedure Date October 13, 2019 Pre-Procedure Diagnosis Pre-Procedure Diagnosis: Non STEMI AUC Score AUC Score: 8 Post-Procedure Diagnosis Post-Procedure Diagnosis: Severe CAD Procedure(s) Performed Procedure(s) Performed: Coronary Angiography and Left Heart Cath Warp Starter Isra Valencia MD Staff Electrical Engineer(s) none Estimated Blood Loss Estimated Blood Loss: 10cc Medication(s) Medication(s): Fentanyl, Heparin, Lidocaine 1%, Nicardipine, Nitroglycerin and Versed Summary of Findings Procedure performed: Left heart catheterization, selective coronary angiography Staff splitter machine: Isra Valencia MD Indication: The patient is a 54-year-old gentleman without a known history of coronary disease he presented with symptoms of chest discomfort, an abnormal EKG and mildly elevated cardiac biomarkers. Based on his symptoms and risk factors is felt be good candidate for coronary angiography. Procedure detail: The patient was informed of the risk benefits and alternatives to the intended procedure. He understood and wished to proceed. He was taken to the cardiac catheterization suite in a fasting state. Conscious sedation was administered per protocol and the patient was monitored electrocardiographically throughout today's procedure. The right radial area is prepped and draped in usual sterile fashion. The right radial artery was subsequently accessed using Seldinger technique and a sheath was placed over guidewire at this site. The sheath was used to felt a passage of the catheter for selective coronary angiography and left heart catheterization. Images were obtained in multiple orthogonal views prior removal of the catheter. The patient tolerated procedure well. There were no immediate complications. Equipment used: 5 [employer] 4 Coronary angiography: Left main: Left main artery was a very short but bifurcated normally into left anterior descending and left circumflex artery. No disease in this vessel Left anterior descending: Left anterior descending was a large transapical vessel. It produced a small first diagonal branch AV medium sized second diagonal branch and several additional small diagonal branches. There was a discrete stenosis just prior to the second diagonal branch. This was 90% stenosis in its most severe segment. The remaining vessel had some luminal irregularities but no other discrete stenoses Left circumflex: Left circumflex artery was a nondominant vessel. It produced a diminutive first OM and a large second OM system. No discrete lesions in this vessel Right coronary artery: The right coronary artery was dominant. It produced a large PLB and PDA branch. There were luminal irregularities throughout this vessel but no discrete lesions. There were right to left collaterals with reconstitution of the distal LAD. Impression: Single-vessel obstructive coronary disease involving the mid LAD Normal left ventricular end-diastolic pressure No evidence of aortic stenosis Right dominant coronary system Hemodynamics Rest Ao:: 87/55 mmHg Final Ao: 91/61 mmHg LV: 109/7 mmHg left ventricular end-diastolic pressure of 13 mmHg Recommendations Recommendations: PCI without planned CABG Specimens Specimens: None Radiation Exposure (mGy) 1091 Contrast (mls) 40 Procedural Complication(s) None Disposition PCU I attest to the content of the Intraoperative Record and any orders documented therein. Any exceptions are noted below. [facility] Card Cath Procedure Codes Cardiac Catheterization Procedure 1: Cardiovascular Cath Procedures: 59709 Coronaries and LHC (+/-LV) Moderate Sedation Procedure 1: Sedation/Anesthesia: 71038 Mod Sedation by the same physician;Init15 Min Sudheer hancock Age 5 & Up PG Care Time/CCT Total # of Minutes Spent Total Time Spent with Patient: Total time spent is greater than 50% in coordination of care (as documented) at patient's floor/unit and/or counseling patient:
[2019-10-13] MEDS ORDERED: CLOPIDOGREL BISULFATE 300 MG TAB ONE (11:16)
--- NOTE | 2019-10-13 11:30 | Post Anesthesia Assessment ---
Date of Service October 13, 2019 Post Sedation Assessment Vital Signs Temp Pulse Pulse Resp BP BP Pulse Ox 10/13/19 07:13 36.6 C 64 18 133/84 94 10/13/19 04:02 36.6 C 68 20 137/86 98 10/13/19 03:20 61 10 L 95 10/13/19 01:49 61 10/12/19 23:20 64 18 96 10/12/19 23:10 36.8 C 61 18 113/72 96 10/12/19 20:02 36.6 C 74 18 126/72 96 10/12/19 15:32 36.8 C 94 H 18 128/72 94 10/12/19 15:13 36.7 C 95 H 18 117/71 96 10/12/19 14:53 69 10/12/19 13:24 70 10/12/19 13:05 37 C 90 18 139/71 100 10/12/19 12:10 68 18 120/84 97 Discharge Sedation Level of Care: Phase I Post Sedation Plan On clinical assessment, the patient appears to have tolerated the sedation without complications. Patient is recovering as anticipated. Patient will continue to be monitored by nursing and may be discharged when sedation discharge criteria are met per below protocol. Upon Completions of procedure up to 15 minutes continue every 5 minute vital signs and the P.A.R. score; then discharge to a Phase I or Fast Track to Phase II per the following guidelines: * Discharge Patient to appropriate Phase II area if PAR is 8 or greater or return to pre- procedure baseline. The post - procedure orders will be as directed. * If PAR score is less than 8 or not return to pre-procedure baseline then patient will follow Phase I monitoring till PAR is reached for Phase II. The Phase I may be done in procedure room or may call to secure a Phase I area. * If naloxone or flumazenil are used for reversal, hold in Phase I for continued monitoring from when last reversal dose was given for a minimum of 60 minutes or longer pending the nurse and/or physician discretion of patient condition before discharge to Phase II. Please call the Sedation Physician to re-evaluate and complete post-note for discharge to Phase II area. Do NOT discharge from procedure sedation or Phase 1 until post- sedation evaluation note is complete by procedure /sedation MD Sedation Discharge Instructions to be given to the patient at discharge to home.
--- NOTE | 2019-10-13 11:32 | Post Operative Brief Note ---
Cardiology Brief Post Op Date of Surgery October 13, 2019 Pre & Post Diagnosis Operation Date: 10/13/19 10:15 54-year-old gentleman, admitted with acute coronary syndrome. Minimally elevated troponins, please see full diagnostic cardiac catheterization report for details of the procedure and findings. PCI performed of mid left and descending artery with 3 mm x 23 mm Xience drug- eluting stent, postdilated with 3.25 mm noncompliant balloon at 14 to 16 scoo. Excellent angiographic results with 0% residual and normal flow. Start with dual antiplatelet therapy with aspirin and Plavix, intensive risk factor modification. Procedure Percutaneous intervention of mid left anterior descending artery with placement of drug-eluting stent. Career Agent Uli Grier MD Spinner Concrete Pipe none Estimated Blood Loss 10 Findings Consistent with Post-Op Diagnosis
--- NOTE | 2019-10-13 11:33 | Cardiac Catheterization ---
[facility] Data: Project Product Manager Cardiac Status Clinical evaluation leading to the procedure CAD Presenation: Unstable angina Diagnostic Physicians Name: Uli Grier MD Closure Device Recommendations: PCI without planned CABG Cardiac Cath Procedure Full Procedure Date October 13, 2019 Pre-Procedure Diagnosis Pre-Procedure Diagnosis: Non STEMI AUC Score AUC Score: 8 Post-Procedure Diagnosis Post-Procedure Diagnosis: Severe CAD Procedure(s) Performed Procedure(s) Performed: Coronary Angiography and Left Heart Cath Assorter Uli Grier MD Fat Purification Worker(s) none Estimated Blood Loss Estimated Blood Loss: 10cc Medication(s) Medication(s): Fentanyl, Heparin, Lidocaine 1%, Nicardipine, Nitroglycerin and Versed Summary of Findings Procedure performed: Left heart catheterization, selective coronary angiography Staff nurse special: Isra Valencia MD Indication: The patient is a 54-year-old gentleman without a known history of coronary disease he presented with symptoms of chest discomfort, an abnormal EKG and mildly elevated cardiac biomarkers. Based on his symptoms and risk factors is felt be good candidate for coronary angiography. Procedure detail: The patient was informed of the risk benefits and alternatives to the intended procedure. He understood and wished to proceed. He was taken to the cardiac catheterization suite in a fasting state. Conscious sedation was administered per protocol and the patient was monitored electrocardiographically throughout today's procedure. The right radial area is prepped and draped in usual sterile fashion. The right radial artery was subsequently accessed using Seldinger technique and a sheath was placed over guidewire at this site. The sheath was used to felt a passage of the catheter for selective coronary angiography and left heart catheterization. Images were obtained in multiple orthogonal views prior removal of the catheter. The patient tolerated procedure well. There were no immediate complications. Equipment used: 5 Yi Mumford 4 Coronary angiography: Left main: Left main artery was a very short but bifurcated normally into left anterior descending and left circumflex artery. No disease in this vessel Left anterior descending: Left anterior descending was a large transapical vessel. It produced a small first diagonal branch AV medium sized second diagonal branch and several additional small diagonal branches. There was a discrete stenosis just prior to the second diagonal branch. This was 90% stenosis in its most severe segment. The remaining vessel had some luminal irregularities but no other discrete stenoses Left circumflex: Left circumflex artery was a nondominant vessel. It produced a diminutive first OM and a large second OM system. No discrete lesions in this vessel Right coronary artery: The right coronary artery was dominant. It produced a large PLB and PDA branch. There were luminal irregularities throughout this vessel but no discrete lesions. There were right to left collaterals with reconstitution of the distal LAD. Impression: Single-vessel obstructive coronary disease involving the mid LAD Normal left ventricular end-diastolic pressure No evidence of aortic stenosis Right dominant coronary system Hemodynamics Rest Ao:: 88/57 Final Ao: 96/65 LV: not done Recommendations Recommendations: PCI without planned CABG Specimens Specimens: None Radiation Exposure (mGy) 1641 Contrast (mls) 75 Procedural Complication(s) None Disposition PCU I attest to the content of the Intraoperative Record and any orders documented therein. Any exceptions are noted below. PG Care Time/CCT Total # of Minutes Spent Total Time Spent with Patient: Total time spent is greater than 50% in coordination of care (as documented) at patient's floor/unit and/or counseling patient:
[2019-10-13] MEDS: FAMOTIDINE 20 MG TAB PO SCH (13:48)
[2019-10-13] MEDS: HEPARIN SODIUM/DEXTROSE 25,000 UNITS/500 ML BAG IV SCH (15:46)
--- NOTE | 2019-10-13 17:50 | Medical Student Progress Note ---
Date of Service October 13, 2019 Supervising Attestation I personally examined the patient and verified all ogden points of history and exam, discussed case, and agree with decision making with Yohan Laboy MS3. pt upset and wants to leave when i see him. after explaining role/rationale for post cath and post ND care, he settles to where he is still not content but is willing to stay till tomorrow. vitals noted nad heent nc at mmm breathing unlabored no accessory muscles good effort skin no rashes no pallor or icterus NSTEMI - s/p cath/stent. med management, secondary risk reduction uncontrolled DM2 - trying to get better understanding of eating habits to hopefully transformation coach on lifestyle change, insulin management tobacco abuse - desperately needs cessation dyslipidemia - markedly high TG, markedly low HDL. lifestyle change, statin, fenofibrate, fish oil otherwise as above Subjective Mr. Eason is a 54 y/o male with a PMH of HTN, hypertriglyceridemia (1,208), GERD, DM2 (A1C of 11.2), and an extensive smoking history beginning at age 11, who presented to the ED this morning after waking from chest pain that progressively got worse throughout the morning. It was 10/10 after drinking Ice tea and was worse with exertion and caused him to vomit and diaphorese. The pain was substernal and did not radiate and stopped after receiving a nitro patch in ED. He has had several episodes like this sometimes occurring at rest and sometimes after a meal but never to this level of pain. An echocardiogram was normal He had elevated troponins and a cardiac cath showed a 90% LAD blockage and a stent was placed. Results & Data ([facility]) Vital Signs (Past 12 Hours) Vital Signs Temp Pulse Pulse Resp BP BP Pulse Ox 10/13/19 16:43 73 18 124/71 95 10/13/19 15:43 73 17 146/79 H 99 10/13/19 14:43 58 L 17 107/61 97 10/13/19 13:43 74 17 123/71 97 10/13/19 12:43 58 L 17 111/72 88 L 10/13/19 12:13 36.7 C 65 17 118/65 95 10/13/19 11:56 63 18 128/87 94 10/13/19 11:41 36.9 C 63 18 119/64 94 10/13/19 07:13 36.6 C 64 18 133/84 94
[2019-10-13] MEDS ORDERED: POLYETHYLENE (MIRALAX) 17 GM PACK PO PRN (17:56)
[2019-10-13] MEDS ORDERED: ACETAMINOPHEN 325 MG TAB PO PRN (17:56)
[2019-10-13] MEDS ORDERED: MELATONIN 3 MG TAB PO PRN (17:56)
--- NOTE | 2019-10-13 18:02 | Billing Data ---
Date of Service October 13, 2019 Coding Level of Care Code 88199 Subseq Hosp Care Lvl 3
[2019-10-13] MEDS: OMEGA-3 (PURIFIED FISH OIL) 1 GM CAP PO SCH (18:53)
[2019-10-13] MEDS: FENOFIBRATE NANOCRYSTALLIZED 145 MG TABLET PO SCH (18:53)
[2019-10-13] MEDS: ATORVASTATIN 40 MG TAB PO SCH (20:02)
[2019-10-14] MEDS: INSULIN ASPART 100 UNITS/ML 3 ML PEN SC SCH ×2 (07:58→11:55)
[2019-10-14] MEDS: INSULIN GLARGINE SOLOSTAR 100 UNITS/ML 3 ML PEN SC SCH (07:59)
[2019-10-14] MEDS: METOPROLOL TARTRATE 25 MG TAB PO SCH (08:00)
[2019-10-14] MEDS: OMEGA-3 (PURIFIED FISH OIL) 1 GM CAP PO SCH (08:00)
[2019-10-14] MEDS: lisinopriL 20 MG TAB PO SCH (08:00)
[2019-10-14] MEDS: FENOFIBRATE NANOCRYSTALLIZED 145 MG TABLET PO SCH (08:00)
[2019-10-14] MEDS: FAMOTIDINE 20 MG TAB PO SCH (08:00)
[2019-10-14] MEDS ORDERED: CLOPIDOGREL BISULFATE 75 MG TAB PO SCH (09:00)
[2019-10-14] MEDS ORDERED: ASPIRIN 325 MG ECTAB PO SCH (09:00)
--- NOTE | 2019-10-14 10:35 | Med Student Discharge Summary ---
Date of Service October 14, 2019 Admission HPI Per Admitting Provider Malachi Eason is a 54 year old male who presents to the ER with severe chest pain that started at 5:30am today. The pain woke him up and gradually increased throughout the morning. Most severe 10/10 after drinking ice tea. Worse on exertion. Ice tea started his vomiting and diaphoresis and just wouldn't go away after this so he called for EMS. Aspirin and nitro spray given by EMS on route. No radiation. Substernal. Since being given the nitro patch in the ER he has been chest pain free. No prior history of CAD or CVA. He has a long standing history of similar pains over the last year. These appear to have been getting worse the last few weeks but to much less severity than today. Occurring at rest. On one occasion after eating a burger Rolando whopper. Another time he woke up in the middle of the night with his heart going fasting and pounding (he put this down to newly taking gabapentin). He reports being stung by a bee yesterday and wondered whether this precipitated his pain today. He has a longstanding history of GERD requiring prior EGDs although he cannot reliably remember the results of these but they were more than a decade ago. He has diabetes and reports not having his insulin for the last 3 months, he did take his usual 30 units last night. He also has LEANNE but reports having difficulty getting the correct supplies so also hasn't been using this. Current smoker - 1.5 packs/day. Admission Exam (Per Admitting) Constitutional well developed and well nourished; no acute distress Eyes + anicteric sclerae; normal pupil size ENMT external ear and nose normal, oropharynx normal Mallampati Class: II Neck trachea midline, no thyromegaly Respiratory normal respiratory effort, lungs clear to auscultation normal respiratory effort Cardiovascular RRR, no murmur, no edema Rate/Rhythm: regular rate Gastrointestinal (Abdomen) normal bowel sounds, soft, nontender, no hepatosplenomegaly Musculoskeletal no cyanosis or clubbing, extremities motor strength 5/5 Skin no rashes, warm and dry Neurologic moves all extremities and awake; not confused Psychiatric A+Ox3, euthymic affect Genitourinary no CVA tenderness Lymphatic no cervical or axillary lymphadenopathy Discharge Data Consultations 10/12/19 11:06 ED Decision to Admit Stat 10/12/19 16:18 Consult Cardiology Routine 10/13/19 11:28 Consult Cardiac Rehabilitation Routine Procedures Performed Operation Date: 10/13/19 10:15 Actual Procedures p Cath, Left with Cors and Vent - Doyle Valencia MD s Cineradiography w/Routine Exam - Doyle Valencia MD s Drug Eluting Stent SGl Vessel - Uli Grier MD Hospital Course (1) Chest pain: patient's symptoms of chest discomfort have typical and atypical features. He had a very prolonged episode of what he described as severe discomfort with only mild elevation in his cardiac biomarkers. However, he has begun having similar episodes over the past month, some which seem to be worsened by exertion. Objective finding suggestive of ischemia would be his cardiac biomarker elevation and abnormal EKG. Echocardiogram was reassuring that he has preserved LV systolic function without evidence of old infarct. My main concern is his risk factors for coronary disease. Appears have poorly controlled diabetes and an abnormal lipid profile. He has a family history of cardiac disease. We discussed options for additional evaluation. I think based on his risk factors and some typical features of his symptoms would be reasonable to perform coronary angiography. Discussed the risks benefits and alternatives and he is willing to proceed. He will clearly need more aggressive risk factor modification to include better glycemic control, additional anti-lipid agents and a return to use of CPAP more regularly Coronary angiography showed 90% blockage in LAD, was stented with no complication. Patient felt fine afterwards. Extensive conversations about lifestyle and different methods to stop smoking, form a healthier diet, and more exercise were discussed. DISCHARGE A/P Chest Pain: Mr. Eason came to our hospital with chest pain that was uncertain to be GI related or Cardiac related. Troponins, EKG, and coronary angiography confirmed it to be cardiac and a stent fixed his chest pain. Hypertriglyceridemia: An extensive conversation about the Mr. Eason's diet was discussed. Each meal he has during the day were talked about with him and healthier options were discussed. He acknowledge potential diet changes he can make to have a healthier heart. He acknowledge how important diet was to his heart health. Exercise was discussed and a plan was formed to walk/run/exercise for 30 minutes at least once everyday in the morning. Patient agrees to the plan and seems eager to start. Mr. Eason acknowledged smoking was bad for his heart and overall health, he is confident that he can stop smoking on his own without any need for patches or medications, and acknowledges that he can rely on patches and medicines if he finds stopping on his own difficult. He is motivated to save money and save his cardiac tissue by quitting. Type 2 Diabetes: Lifestyle changes were discussed as outlined above. Hypertension: Lifestyle changes were discussed as outlined above. GERD: Continue medication DISCHARGE ROS: Cardiac: No chest pain, no discomfort, no edema, no palpitations Respiratory: No SOB GI: No diarrhea or discomfort DISCHARGE PE: Cardiac: Normal S1/S2 appreaciated, no murmurs, rubs, or gallops Respiratory: No Rales, rhonchi or discomfort GI: Normal bowel sounds, no tenderness to palpation Discharge Plan Discharge Items Patient Disposition: Home - Self-Care Reason For Visit: CHEST PAIN RULE OUT [place] Discharge Diagnosis: Heart Attack Condition on Discharge: Good Activity: As commented below Non-emergency contact: Primary Care Provider and [employer] Call non-emergency contact if: you have any medication questions Follow-up/Referrals: PCP,NO [Primary Care Provider] - Diet: Carb Consistent or DM2 and Heart Healthy Addtl Attending Provider Instructions: You were hospitalized for chest pain and were found to have a heart attack. You had a heart catheterization procedure at which time a stent was placed in one of your coronary arteries, or an artery that feeds the heart muscle itself. The stent will help keep this small vessel open and allow blood to nourish the eisenberg of the heart. After leaving the hospital, we recommend you participate in cardiac rehab, which is an environment where you can safely increase your physical activity. It is important to realize that a heart attack is the end- event of blockages of bloodflow to your heart muscle - and those blockages cause heart muscle to off. Fortunately because you came in quickly and we were able to treat things aggressively, the actual heart muscle is pretty minimal this time, but it's not a problem that fixes itself -- it really takes a solid effort of both being on the right medications, and changing eating and exercise habits - to prevent blockages from getting worse and causing further damage. Several of the factors that contributed to you having a heart attack include the poor control of your diabetes and your tobacco use (smoking). Your HbA1c came back at 11.2, well above your goal of < 7. We have restarted your insulin while in the hospital. Please take 30 units of lantus at night. With regards to diet, we recommend consuming fewer carbohydrates (pasta, bread, rice, anything made from a potato, sugar drinks, sweets like cakes and cookies, and alcoholic beverages). The fewer carbohydrates you eat, the less insulin you will need to "cover" those carbs. Often we see people really regress (or sometimes even cure) their diabetes with eating and exercise changes - so work on this as best you can (and then a little more than you think you can) - it is critically important to do so. One of the most common things people don't learn about diabetes is that high sugars clog arteries. So basically, the higher your sugars run, and the longer they run high, the more you're clogging up blood vessels you can't get back. Typically, type 2 diabetes is mostly an illness brought on by eating and exercise habits (that then brings out the effects of our genetics - but it's important to know that for the huge majority of diabetics, it's a "lifestyle illness" far more than a "genetic curse" -- even when there's a strong family history of type 2 diabetes, when you look at the lifestyle habits of the family - it's almost more a disease of habits being passed down as much/more than it is a disease of genetics being passed down) The most beneficial thing you could do for your health is to quit smoking. This can be a challenging task - but we have many modalities to help you achieve it. Please work with your family doctor on smoking cessation. As it relates to your heart disease, smoking is such a strongly corrosive force on your blood vessels, that if you continue to smoke it's almost a guarantee that you'll continue to have more and more heart attacks. Once the cardiologists give you the "green light" to do so, getting in regular exercise is hugely important both in protecting your heart from further blockages, damage, and heart, but also in regressing your diabetes. in a perfect world, we'd see you work up to 30 minutes of nonstop exercise every day. remember that even though you work a physical job, to "[id number]-stop" type of exercise is not nearly as helpful to your metabolism and blood vessels as doing 30 minutes continuously. Several medication changes were made during this hospitalization. We increased your dose of Atorvastatin from 10mg, daily to 80mg, daily. The stronger dose will help lower cholesterol levels and help stabilize already existing cholesterol plaques in your arteries. This is important because small chips can break off of unstable plaques and clog off smaller vessels downstream (which could result in additional heart attacks or strokes). We also ask you to start taking Plavix, 75 mg, daily. This medication works similarly to your aspirin, by helping reduce blood clotting activity of platelets. This medication was added because a stent was placed in your heart, the structure of which tends to be "pro-clotting." Taking both aspirin and plavix together reduce the risk of clotting off your stent significantly. We have changed your blood pressure medication from Atenolol to Metoprolol Tartrate 25mg, twice daily. Although these medications are in the same class, Metoprolol is better for people who have suffered heart attacks, as it reduces the strain on your heart. Please continue to take Lisinopril, 20mg daily for your blood pressure. The higher the blood pressure, the harder your heart has to work. While obviously these are a lot of medications to take each day and to remember each day, the medications are highly effective at protecting you from a future heart attack, and at slowing down how quickly you block off more arteries. Sadly, 6 months after a heart attack, only about 1 out of 3 people are still taking their medications properly - and most don't stop due to problems/etc - most stop just due to not really knowing the importance. Please don't let that be you. Your triglycerides were extremely elevated while in the hospital. This value is high from consuming too many dietary carbohydrates. While eating fewer carbs will lower this value, we started you on two medications to lower it. Please take Fenofibrate, 145mg, by mouth, daily and Fish Oil ([place] 3 fatty acids) 1gram, by mouth, daily. If possible, it is important for you to wear your CPAP while sleeping at night. Untreated sleep apnea can cause future heart problems. Pending Studies at Discharge: No Stand-Alone Forms: My [facility] [employer], Smoking Cessation Medications and DC Order Prescriptions: New atorvastatin 40 mg Tablet 80 mg PO QPM 30 Days Qty: 60 RF: 0 clopidogrel 75 mg Tablet 75 mg PO QAM 30 Days Qty: 30 RF: 0 fenofibrate nanocrystallized 145 mg Tablet 145 mg PO QAM 30 Days Qty: 30 RF: 0 Fish Oil 340-1,000 mg Capsule 1 g PO QAM 30 Days Qty: 22.389 RF: 0 (DME) pen needle, diabetic [Pen Needle] 32 gauge x 5/32" needle See Rx Instructions .ROUTE .MEDSUPPLY Qty: 10 RF: 1 aspirin 81 mg tablet,delayed release (DR/EC) 81 mg PO DAILY Qty: 30 RF: 0 metoprolol succinate 25 mg tablet extended release 24 hr 25 mg PO BID Qty: 30 RF: 0 Continued lisinopril 20 mg tablet 20 mg PO DAILY RF: 0 omeprazole 40 mg capsule,delayed release(DR/EC) 40 mg PO DAILY RF: 0 nystatin 100,000 unit/gram cream 1 applic TOPICAL BID RF: 0 gabapentin 300 mg capsule 300 mg PO HS RF: 0 Lantus Solostar U-100 Insulin 100 unit/mL (3 mL) insulin pen 30 unit SUBCUT QPM RF: 0 Discontinued atorvastatin 10 mg tablet 10 mg PO DAILY RF: 0 atenolol 25 mg tablet 25 mg PO DAILY RF: 0 Discharge Orders: Discharge Order (Routine); Ordered 10/14/19 Ordered By: Kasia Hernandez/Other Patient Handouts: Managing Type 2 Diabetes, Diabetes Shopping Preparing Meals, Managing Diabetes: The A1C Test, Diabetes: Meal Planning, Eating Heart-Healthy Foods Admission Data Admit Date/Time: 10/12/19 16:18 Attending Provider: John Julien Admit Provider: Ricardo Will Primary Care Provider: PCP,NO Other Providers: Ricardo Will ; Doyle Valencia Other Interventions: Discharge Summary Assessment (RN) Last Done: 10/14/19 10:30 DC Date/Time DO NOT enter until pt leaves facility: 10/14/19 12:14 Supervising Attestation I personally examined the patient and verified all ogden points of history and exam, discussed case, and agree with decision making with Yohan Laboy MS3. feeling good, wants to go home, seems motivated to make lifestyle change. extensive discussions on importance of ongoing med adherence, tobacco cessation, exercise, and eating changes. vitals noted nad heent nc at mmm breathing unlabored no accessory muscles good effort skin no rashes no pallor or icterus NSTEMI - s/p cath/stent. med management, secondary risk reduction (both by lifestyle and meds) uncontrolled DM2 - extensive discussions on the critical/central/pivotal role of lifestyle in this. continue insulins otherwise tobacco abuse - desperately needs cessation- he is aware dyslipidemia - markedly high TG, markedly low HDL. lifestyle change discussed extensively, statin, fenofibrate, fish oil otherwise as above, >30mins
--- NOTE | 2019-10-14 10:41 | Cardiology Progress Note ---
Date of Service October 14, 2019 Assessment & Plan (1) Chest pain: Some features of his recent symptoms were likely related to coronary stenosis. Not clear that all of this chest pain was related. However, he does have several risk factors for coronary disease and did undergo percutaneous intervention yesterday without evident complication. I believe he is safe for discharge. He will need to continue dual anti-platelet therapy preferably for 1 year. Will continue high-dose atorvastatin. He will need continued aggressive risk factor modification. Subjective This morning patient claims to be feeling well. He did not describe discomfort at the access site the right wrist. He has been ambulatory. No recurrent chest pain. Review of Systems Review of Systems: Per HPI Physical Exam Physical Exam: The patient is alert and oriented. Mood and affect appeared normal. He answered all questions appropriately. HEENT: Pupils are equal and reactive to light and accommodation. Extraocular movements are intact. The sclerae are anicteric. evaluation the right radial access site reveals good radial pulses and good perfusion of the right hand. No ecchymosis. Skin: I did not appreciate any rashes on examination today. Results & Data Vital Signs (Past 12 Hours) Vital Signs Temp Pulse Pulse Resp BP BP Pulse Ox 10/14/19 10:30 36.6 C 71 18 138/87 120/77 95 10/14/19 07:53 36.6 C 71 18 138/87 95 10/14/19 04:01 36.9 C 76 19 120/77 97 10/14/19 03:14 60 18 95 10/13/19 23:30 36.9 C 59 L 19 105/68 95 Laboratory Results Abnormal Lab Results 10/13/19 10/13/19 10/13/19 11:25 13:12 16:17 Activ Coag Time Kaolin 367 H POC Glucose 187 H 245 H 10/13/19 10/14/19 20:12 07:42 Activ Coag Time Kaolin POC Glucose 161 H 178 H Diagnostic Findings Coronary angiography yesterday discrete severe stenosis involving the mid LAD. Patient underwent successful percutaneous intervention at this site. He does have a chronic total occlusion of what appears to be a large ramus intermedius that fills via [id number] collaterals.
[2019-10-14] MEDS ORDERED: Nursing to Pharmacy Communication SCH (11:30)
[2019-10-14] MEDS ORDERED: ATORVASTATIN 40 MG TAB PO SCH (11:45)
[2019-10-14] MEDS ORDERED: METOPROLOL TARTRATE 25 MG TAB PO SCH (11:45)
--- NOTE | 2019-10-14 18:45 | Billing Data ---
Date of Service October 14, 2019 Coding Level of Care Code D/C Day Management >30 mins
== END 2019-10-14 12:14 | disposition home or self-care (01) | DRG 247 ==
LOC: 2N 08:33 → ED 08:33 → 2N 12:11 → SUATTDRO 16:18 → 2S 10-13 12:23